=== PATIENT | female | born 1965 | race Caucasian/White ===

== ENCOUNTER → 2016-12-10 | Outpatient (CLI) | payer BC ==
--- NOTE | 2016-12-10 08:30 | US ---
EXAMINATION TYPE: US liver DATE OF EXAM: 12/10/2016 7:29 AM COMPARISON: NONE CLINICAL HISTORY: 51-year-old female R74.8 elevated liver enzymes. TECHNIQUE: Multiple sonographic images of the right upper quadrant are obtained. FINDINGS: Liver Length: 12.7 cm Gallbladder Wall: 0.3 cm CBD: 0.2 cm Right Kidney: 11.9 x 4.5 x 5.2 cm Pancreas: Within normal limits Liver: Normal homogeneous echotexture without focal lesion. Gallbladder: No abnormal gallbladder distention, wall thickening, pericholecystic fluid, or shadowin g calculi. Evidence for sonographic Ricardo's sign: no CBD: Within normal limits. Right Kidney: No hydronephrosis. There is a 4 mm echogenic focus at the lower pole. IMPRESSION: Possible 4 mm nonobstructive right lower pole renal calculus. Otherwise, unremarkable sonographic exa mination of the right upper quadrant.
== END | disposition home or self-care (01) ==
LOC: RADUSWWP 06:46
PROVIDERS: ATTEND Family Medicine
DX: R93.421 Abnormal radiologic findings on diagnostic imaging of right kidney (principal); R74.8 Abnormal levels of other serum enzymes
CPT/HCPCS: 76705

== ENCOUNTER 2017-12-06 12:46 | Emergency (ER) | payer OTHER, BC ==
[2017-12-06 13:11] VITALS: BP 136/80; PULSE 85; RESP 18; TEMP 99.6
[2017-12-06] MEDS ORDERED: PROPARACAINE 0.5% OPHTH DROPS 15 ML BTL ONE (13:22)
[2017-12-06] MEDS ORDERED: PROPARACAINE 0.5% OPHTH DROPS 15 ML BTL BOTH EYES STA (13:24)
--- NOTE | 2017-12-06 13:52 | ED ---
General Adult HPI - General Chief complaint: Needlestick/Exposure Stated complaint: dog blood in eye - [facility] Time Seen by Provider: 12/06/17 13:23 Source: patient, RN notes reviewed Mode of arrival: ambulatory Limitations: no limitations - History of Present Illness Initial comments: 52-year-old female presents to the emergency department for chief lamp right eye pain 1 hour. Patient states she was at work cutting a dog's nail went and nail hit her in the right eye. Patient states bled from the dog also hit her face but she does not think he got in her eye. Patient states the dog is vaccinated including the rabies vaccine. Patient denies any visual changes. Patient does wear contacts which she removed from her right eye. Patient denies any pain with movement of the eye any halos around lights or any other visual changes. No other complaints at this time including shortness of breath , chest pain, abdominal pain, ear pain, nausea or vomiting. - Related Data Home Medications Medication Instructions Recorded Confirmed Aspirin [Adult Low Dose Aspirin EC] 81 mg PO DAILY 06/25/16 06/25/16 Atorvastatin [Lipitor] 20 mg PO HS 06/25/16 07/01/16 Cinnamon Bark [Cinnamon] 500 mg PO DAILY 06/25/16 07/01/16 Coconut Oil 1 dose PO DAILY 06/25/16 07/01/16 Ibuprofen [Motrin] 600 mg PO Q6HR PRN 06/25/16 07/01/16 L.acidoph,Paracasei, B.lactis 1 each PO DAILY 06/25/16 07/01/16 [Probiotic] Magnesium 400mg With Zinc 2 tab PO DAILY 06/25/16 07/01/16 Multivitamins, Thera [Multivitamin] 1 tab PO DAILY 06/25/16 06/25/16 Papaya [Papaya Enzyme] 1 each PO DAILY 06/25/16 07/01/16 SUMAtriptan SUCCINATE [Imitrex] 50 mg PO ONCE PRN 06/25/16 07/01/16 Previous Rx's Medication Instructions Recorded Ofloxacin 0.3% Ophth Soln [Ocuflox 1 - 2 drops RIGHT EYE QID 7 Days 12/06/17 Ophth Soln] ml Allergies Allergy/AdvReac Type Severity Reaction Status Date / Time amoxicillin [From Augmentin] Allergy Unknown Nausea & Verified 12/06/17 13:11 Vomiting, Hives cephalexin Allergy Unknown Nausea & Verified 12/06/17 13:11 Vomiting, Hives clavulanic acid Allergy Unknown Nausea & Verified 12/06/17 13:11 [From Augmentin] Vomiting, Hives codeine Allergy Unknown Nausea & Verified 12/06/17 13:11 Vomiting, Hives Fish Containing Products Allergy Unknown Swelling Verified 12/06/17 13:11 [Fish] shellfish derived [Shellfish] Allergy Unknown Swelling Verified 12/06/17 13:11 Sulfa (Sulfonamide Allergy Unknown Rash/Hives, Verified 12/06/17 13:11 Antibiotics) Nausea & Vomiting Review of Systems ROS Statement: Those systems with pertinent positive or pertinent negative responses have been documented in the HPI. ROS Other: All systems not noted in ROS Statement are negative. Past Medical History Past Medical History: Fibromyalgia, GERD/Reflux Additional Past Medical History / Comment(s): HIATAL HERNIA, ATHLETIC INDUCED ASTHMA, FAMILIAL TREMORS, ANAPHYLACTOID PURPURA WITH HENOCH-SCHONLEIN PURPURA., IBS WITH CHRONIC CONSTIPATION. History of Any Multi-Drug Resistant Organisms: None Reported Past Surgical History: Breast Surgery, Section Additional Past Surgical History / Comment(s): BREAST LUMPECTOMY X3, BREAST REDUCTION X2, EGD. Past Anesthesia/Blood Transfusion Reactions: Motion Sickness, Postoperative Nausea & Vomiting (PONV) Past Psychological History: No Psychological Hx Reported Smoking Status: Former smoker Past Alcohol Use History: Rare Past Drug Use History: None Reported - Past Family History Mother Family Medical History: No Reported History General Exam Limitations: no limitations General appearance: alert, in no apparent distress Head exam: Present: atraumatic, normocephalic, normal inspection Eye exam: Present: PERRL, EOMI, conjunctival injection, other (Fluorescein and Wood's lamp shows a corneal abrasion at 7:00 in the right eye. Negative Ronald sign. No ulcers noted.). Absent: scleral icterus, nystagmus, periorbital swelling, periorbital tenderness Pupils: Present: normal accommodation ENT exam: Present: normal exam, normal oropharynx, mucous membranes moist, TM's normal bilaterally Course Vital Signs 12/06/17 13:09 Temperature 99.6 F Pulse Rate 85 Respiratory 18 Rate Blood Pressure 136/80 O2 Sat by Pulse 98 Oximetry Medical Decision Making - Medical Decision Making 52-year-old female present to the emergency department for chief complaint of right eye pain 2 hours. Patient was cutting a dog's nail went and nail and in her eye. Patient washed out her eye extensively while at work. Dog was fully vaccinated. Wood's lamp and fluorescein stain was used to visualize any abrasions which demonstrated abrasion at 7:00. Proparacaine took away the pain completely. Patient has full range of motion of the eye with mild conjunctival injection. No foreign bodies under the lids. Visual acuity showed consistent vision in both eyes bilaterally. Visual acuity was less than 20/200 because patient did not have her contacts in. She removed them due to the eye pain. Patient will be discharged with antibiotic drop and follow-up with primary care in 1-2 days. she will return to the emergency Department if she has any worsening symptoms or changes in vision. Disposition Clinical Impression: Corneal abrasion, right Disposition: HOME SELF-CARE Condition: Good Instructions: Corneal Abrasion (ED) Additional Instructions: Use antibiotic drops in the right eye as directed Please return to the emergency department if you notice any signs of visual changes, pain in the eye , or any worsening symptoms. Follow up with primary care in 1-2 days. Prescriptions: Ofloxacin 0.3% Ophth Soln [Ocuflox Ophth Soln] 1 - 2 drops RIGHT EYE QID 7 Days ml Is patient prescribed a controlled substance at d/c from ED?: No Referrals: Otis Schilling MD [Primary Care Provider] - 1-2 days Time of Disposition: 13:52
== END 2017-12-06 13:57 | disposition home or self-care (01) ==
LOC: EC 12:46
DX: S05.01XA Injury of conjunctiva and corneal abrasion without foreign body, right eye, initial encounter (principal); M79.7 Fibromyalgia; Z87.891 Personal history of nicotine dependence; Z79.82 Long term (current) use of aspirin; Z79.899 Other long term (current) drug therapy; Z88.0 Allergy status to penicillin; Z88.1 Allergy status to other antibiotic agents; Z88.2 Allergy status to sulfonamides; Z88.5 Allergy status to narcotic agent; Z91.013 Allergy to seafood; W22.8XXA Striking against or struck by other objects, initial encounter; Y93.K9 Activity, other involving animal care; Y99.0 Civilian activity done for income or pay
CPT/HCPCS: 99282

== ENCOUNTER → 2018-07-27 | Outpatient (CLI) | payer BC ==
--- NOTE | 2018-07-30 11:16 | MM ---
Reason for exam: screening (asymptomatic). Last mammogram was performed 3 years and 1 month ago. History: Family history of breast cancer in paternal grandmother at age 80. Benign left breast aspiration of the left breast, August 19, 2012. Cancelled Left Needle Localization of both breasts, August 19, 2012. Reductions of both breasts, 2004. Took hormonal contraceptives for 8 years beginning at age 18. Physical Findings: A clinical breast exam by your physician is recommended on an annual basis and results should be correlated with mammographic findings. MG 3D Screening Mammo W/Cad Bilateral CC and MLO view(s) were taken. Prior study comparison: July 11, 2015, bilateral MG 3d screening mammo w/cad. July 31, 2012, CAD bilateral diagnostic mammogram. The breast tissue is extremely dense which could obscure a lesion on mammography. Finding: There are round calcifications in both breasts.There is a chronic nodularity bilaterally, left decreased in size, upper outer quadrant, known cysts bilaterally. There is no new dominant lesion. ASSESSMENT: Benign, BI-RAD 2 RECOMMENDATION: Routine screening mammogram of both breasts in 1 year.
== END | disposition home or self-care (01) ==
LOC: RADMAMWWP 09:29
PROVIDERS: ATTEND Family Medicine
DX: Z12.31 Encounter for screening mammogram for malignant neoplasm of breast (principal)
CPT/HCPCS: 77063; 77067

== ENCOUNTER → 2020-06-12 | Outpatient (CLI) | payer BC ==
--- NOTE | 2020-06-13 13:19 | MM ---
Reason for exam: screening (asymptomatic). Last mammogram was performed 1 year and 11 months ago. History: Family history of breast cancer in paternal grandmother at age 80. Benign left breast aspiration of the left breast, August 19, 2012. Cancelled Left Needle Localization of both breasts, August 19, 2012. Reductions of both breasts, 2003. Took hormonal contraceptives for 8 years beginning at age 18. Physical Findings: A clinical breast exam by your physician is recommended on an annual basis and results should be correlated with mammographic findings. MG 3D Screening Mammo W/Cad Bilateral CC and MLO view(s) were taken. Prior study comparison: July 27, 2018, bilateral MG 3d screening mammo w/cad. July 11, 2015, bilateral MG 3d screening mammo w/cad. The breast tissue is heterogeneously dense. This may lower the sensitivity of mammography. There is chronic nodularity bilaterally. Status post reduction mammoplasties. No significant changes when compared with prior studies. ASSESSMENT: Benign, BI-RAD 2 RECOMMENDATION: Routine screening mammogram of both breasts in 1 year.
== END | disposition home or self-care (01) ==
LOC: RADMAMWWP 12:58
PROVIDERS: ATTEND Midwife
DX: Z12.31 Encounter for screening mammogram for malignant neoplasm of breast (principal)
CPT/HCPCS: 77063; 77067

== ENCOUNTER → 2022-02-19 | Outpatient (CLI) | payer BC ==
--- NOTE | 2022-02-20 09:14 | MM ---
Reason for Exam: Screening (asymptomatic). Last mammogram was performed 1 year(s) and 8 month(s) ago. Patient History: Menarche at age 14. First Full-Term at age 27. Patient has history of breast feeding. Hormonal Contraceptives for 8 years from age 18 until age 26. Excisional Biopsy on the Left side. Excisional Biopsy on the Left side. 1984, Excisional Biopsy on the Right side. 2003, Bilateral Reduction. 08/19/2012, Benign Cyst Aspiration on the left side. 08/19/2012, Bilateral Cancelled Left Needle Localization. Paternal grandmother had breast cancer, age 80. Last menstrual period: Risk Values: Maricel 5 year model risk: 1.9%. NCI Lifetime model risk: 12.0%. Prior Study Comparison: 07/11/2015 Bilateral Screening Mammogram, [facility]. 07/27/2018 Bilateral Screening Mammogram, [facility]. 06/12/2020 Bilateral Screening Mammogram, [facility]. Tissue Density: The breast tissue is extremely dense which could obscure a lesion on mammography. Findings: Analyzed By CAD. Postprocedural distortion bilaterally. Benign calcifications persist. No suspicious calcifications evident at this time. Overall Assessment: Benign, BI-RAD 2 Management: Screening Mammogram of both breasts in 1 year. A clinical breast exam by your physician is recommended on an annual basis and results should be correlated with mammographic findings. Electronically signed and approved by: Julio Marks M.D. Radiologis
== END | disposition home or self-care (01) ==
LOC: RADMAMWWP 08:44
PROVIDERS: ATTEND Family Medicine
DX: Z12.31 Encounter for screening mammogram for malignant neoplasm of breast (principal); Z80.3 Family history of malignant neoplasm of breast
CPT/HCPCS: 77063; 77067

== ENCOUNTER → 2023-12-18 | Outpatient (CLI) | payer BC ==
--- NOTE | 2023-12-20 20:38 | MM ---
Reason for Exam: Screening (asymptomatic). Last mammogram was performed 1 year(s) and 10 month(s) ago. Patient History: Menarche at age 14. First Full-Term at age 27. Postmenopausal. Patient has history of breast feeding. Hormonal Contraceptives for 8 years from age 18 until age 26. Excisional Biopsy on the Left side. Excisional Biopsy on the Left side. 1984, Excisional Biopsy on the Right side. 2003, Bilateral Reduction. 08/19/2012, Benign Cyst Aspiration on the left side. 08/19/2012, Bilateral Cancelled Left Needle Localization. Paternal grandmother (nelly) had breast cancer, age 80. Risk Values: Maricel 5 year model risk: 2.0%. NCI Lifetime model risk: 11.5%. Prior Study Comparison: 07/11/2015 Bilateral Screening Mammogram, [facility]. 07/27/2018 Bilateral Screening Mammogram, [facility]. 06/12/2020 Bilateral Screening Mammogram, [facility]. 02/19/2022 Bilateral MG 3D screening mammo w/cad, [facility]. Tissue Density: The breasts are heterogeneously dense, which may obscure small masses. Findings: Analyzed By CAD. Bilateral areas of asymmetric density are unchanged. Additional area of distortion on either side in keeping with patient's history of excisional biopsies. There is no suspicious group of microcalcifications or new suspicious mass in either breast. Overall Assessment: Benign, BI-RAD 2 Management: Screening Mammogram of both breasts in 1 year. . Patient should continue monthly self-breast exams. A clinical breast exam by your physician is recommended on an annual basis. This exam should not preclude additional follow-up of suspicious palpable abnormalities. Note on Maricel scores and lifetime risk: 1. A Maricel score greater than 3% is considered moderate risk. If this is the case, consider specialist referral to assess eligibility for a risk reducing agent. 2. If overall lifetime risk for the development of breast cancer is 20% or higher, the patient may qualify for future screening with alternating mammogram and breast MRI. Electronically signed and approved by: Baljit Jenkins M.D. Radiologist
== END | disposition home or self-care (01) ==
LOC: RADMAMWWP 10:43
PROVIDERS: ATTEND Family Medicine
DX: Z12.31 Encounter for screening mammogram for malignant neoplasm of breast (principal); Z80.3 Family history of malignant neoplasm of breast; Z78.0 Asymptomatic menopausal state
CPT/HCPCS: 77063; 77067